=== PATIENT | male | born 1995 | race American Indian/Alaskan Native ===

== ENCOUNTER 2019-10-15 21:53 | Emergency (ER) | payer SELFPAY ==
--- NOTE | 2019-10-15 22:20 | EDM.PDOC ---
ED HPI GENERAL MEDICAL PROBLEM - General Chief Complaint: Respiratory Problem Stated Complaint: POSS CARBON MONOXIDE POISONING Time Seen by Provider: 10/15/19 22:06 Source of Information: Reports: Patient History Limitations: Reports: No Limitations - History of Present Illness INITIAL COMMENTS - FREE TEXT/NARRATIVE: Is a 24-year-old male who presents to the emergency department with complaints that he could possibly have carbon monoxide poisoning. He states that this evening he was working on the carburetor of his truck in a closed garage. States that he had to turn the truck on intermittently. About 2-1/2 hours ago he developed a headache as well as some nausea and slight shortness of breath. He states that he called and talked to his mother who is a nurse and she stated that he should come to the ER to be checked for carbon monoxide poisoning. He has a history of anxiety and states that after talk to his mom he became increasingly anxious and feels like he may be having a panic attack. He denies any dizziness and has had no syncopal events. He has no chronic health problems. He does admit to drinking 4 beers today. He also smokes marijuana regularly. The last time he smoked marijuana was on 6 PM this evening. He is also chronic cigarette smoker. Frontal Headache Pain Score (Numeric/FACES): 6 - Related Data Allergies Allergy/AdvReac Type Severity Reaction Status Date / Time No Known Allergies Allergy Verified 10/15/19 22:03 Home Meds: Home Meds . [No Known Home Meds] 10/15/19 [History] Past Medical History Musculoskeletal History: Reports: Osteoarthritis Social & Family History - Tobacco Use Smoking Status *Q: Current Every Day Smoker Years of Tobacco use: 10 Packs/Tins Daily: 1 - Recreational Drug Use Recreational Drug Use: Yes Drug Use in Last 12 Months: Yes Recreational Drug Type: Reports: Marijuana/Hashish Recreational Drug Use Frequency: Daily ED ROS GENERAL - Review of Systems Review Of Systems: Comprehensive ROS is negative, except as noted in HPI. ED EXAM, GENERAL - Physical Exam Exam: See Below Exam Limited By: No Limitations General Appearance: Alert, WD/WN, No Apparent Distress, Anxious Respiratory/Chest: No Respiratory Distress, Lungs Clear, Normal Breath Sounds, No Accessory Muscle Use, Chest Non-Tender Cardiovascular: Normal Peripheral Pulses, Regular Rate, Rhythm, No Edema, No Gallop, No JVD, No Murmur, No Rub Extremities: Normal Inspection, Normal Range of Motion, Non-Tender, Normal Capillary Refill, No Pedal Edema Neurological: Alert, Oriented, CN II-XII Intact, Normal Cognition, Normal Gait, Normal Reflexes, No Motor/Sensory Deficits Psychiatric: Normal Affect, Normal Mood Skin Exam: Warm, Dry, Intact, Normal Color, No Rash Course - Vital Signs Last Recorded V/S: Last Vital Signs Temp 97.5 F 10/15/19 22:03 Pulse 63 10/15/19 22:03 Resp 17 10/15/19 22:03 BP 138/95 H 10/15/19 22:03 Pulse Ox 100 10/15/19 22:03 - Orders/Labs/Meds Labs: Laboratory Tests 10/15/19 10/15/19 Range/Units 22:20 22:20 Puncture Site Rt radial ABG pH 7.58 H (7.35-7.45) ABG pCO2 19.0 L* (35.0-45.0) mmHg ABG pO2 117.0 H (80.0-100.0) mmHg ABG HCO3 18 L (22.0-26.0) meq/L ABG O2 Saturation 98.9 H (96.0-97.0) % ABG Base Excess -1.2 (-2-2.0) ABG Carboxyhemoglobin 4.7 H (0.00-1.50) %THgb Ever Test Positive A-a Gradient 9 mmHg O2 Delivery Device Room air Oxygen Flow Rate 0.0 FiO2 21.00 (21.00-100.00) % - Re-Assessments/Exams Free Text/Narrative Re-Assessment/Exam: 10/15/19 22:34 Patient's carboxyhemoglobin is shown to be 4.7% which is well within the normal range for a smoker. On ABG, CO2 levels were low at 19 and oxygen level was elevated at 117. pH slightly elevated at 7.58 indicating patient is likely experiencing an anxiety attack and is hyperventilating. Chest xray was normal. Vital signs are stable. The patient has been drinking and smoking marijuana today, therefere, I do not think a benzodiazepine would be appropriate. I will recommend that he go home and rest. Return to the ER for any worsening symptoms. Departure - Departure Time of Disposition: 22:40 Disposition: Home, Self-Care 01 Condition: Good Clinical Impression: Anxiety - Discharge Information *PRESCRIPTION DRUG MONITORING PROGRAM REVIEWED*: No *COPY OF PRESCRIPTION DRUG MONITORING REPORT IN PATIENT DANA: No Instructions: Living With Anxiety Referrals: PCP,Not In Area [Primary Care Provider] - Forms: ED Department Discharge Additional Instructions: You were seen in the emergency department with concern that you may have carbon oxide poisoning after working in your vehicle in a garage. Your carboxyhemoglobin level was checked which is a measure of carbon monoxide in your blood and found to be normal for smoker at 4.7%. Blood gases were completed and show that your CO2 is low and your oxygen was high which indicates that you are preventing, likely due to a panic attack. Your chest x-ray was done and found to be normal. Recommend that you go home and rest Abstain consumption of alcohol and marijuana this evening. Ensure that you are taking an adequate amount of fluid. If you should experience any worsening symptoms, please not hesitate to return to the emergency department. Sepsis Event Note (ED) - Evaluation Sepsis Screening Result: No Definite Risk
--- NOTE | 2019-10-16 05:39 | CR ---
Chest: 2 views of the chest were obtained. Comparison: No prior chest imaging. Heart size and mediastinum are normal. Lungs are clear with no acute parenchymal change. Bony structures are unremarkable. Impression: 1. Nothing acute is seen on 2 view chest x-ray. Diagnostic code #1 This report was dictated in MDT
== END 2019-10-15 22:55 | disposition home or self-care (01) ==
LOC: JD.ED 21:53
DX: F41.9 Anxiety disorder, unspecified (principal); F17.210 Nicotine dependence, cigarettes, uncomplicated
CPT/HCPCS: 36600; 71046; 71046-26; 82375; 82803; 99282; 99283-25

== ENCOUNTER 2021-01-15 08:29 | Emergency (ER) | payer OTHER ==
--- NOTE | 2021-01-15 09:06 | EDM.PDOC ---
ED HPI GENERAL MEDICAL PROBLEM - General Chief Complaint: Respiratory Problem Stated Complaint: POSS COVID CHEST PAINS COUGH CHILLS Time Seen by Provider: 01/15/21 09:06 Source of Information: Reports: Patient History Limitations: Reports: No Limitations - History of Present Illness INITIAL COMMENTS - FREE TEXT/NARRATIVE: 25-year-old male presents to the ED with acute onset of fever chills generalized myalgia and headache. He has coughed paroxysmal pain since around midnight. Minimal sputum production. Loss of appetite. Emesis x1. He was exposed to a sibling with Covid positivity within the last 5 days. Symptoms really started yesterday. He is unvaccinated against COVID-19. Onset: Sudden Onset Date: 01/13/21 Duration: Day(s): Location: Reports: Chest (Paroxysmal minimally productive cough), Other (Headache generalized myalgia fever and chills loss of appetite) Quality: Reports: Ache, Throbbing (Headache is constant throbbing made worse by coughing.) Severity: Moderate Improves with: Reports: Rest Worsens with: Reports: Other (Coughing), Movement Context: Reports: Sick Contact (Exposed to a sibling with COVID-19 illness a few days ago). Denies: Activity, Exercise, Lifting, Trauma, Other Associated Symptoms: Reports: Chest Pain, Cough, cough w sputum (Severe paroxysmal coughing up slightly greenish tinged sputum.), Fever/Chills, Headaches, Loss of Appetite, Malaise ( vomiting once posttussive.), Nausea/Vomiting (Nausea), Shortness of Breath, Weakness (Productive dyspnea). Denies: Diaphoresis (Upper anterior chest pain from coughing so much), Rash, Seizure Treatments PROPERTY SPECIALIST: Reports: Other (see below) (None.) - Related Data Allergies Allergy/AdvReac Type Severity Reaction Status Date / Time No Known Allergies Allergy Verified 10/15/19 22:03 Home Meds: Home Meds . [No Known Home Meds] 10/15/19 [History] Past Medical History Gastrointestinal History: Reports: PUD (History of peptic ulcer disease in the past) Musculoskeletal History: Reports: Osteoarthritis Social & Family History - Tobacco Use Tobacco Use Status *Q: Current Every Day Tobacco User Tobacco Use Within Last Twelve Months: Cigarettes (1 pack/day) Years of Tobacco use: 10 Packs/Tins Daily: 1 ED ROS GENERAL - Review of Systems Review Of Systems: See Below Constitutional: Reports: Fever, Chills, Malaise, Weakness, Fatigue HEENT: Reports: Rhinitis, Throat Pain (Minimal.) Respiratory: Reports: Shortness of Breath, Cough, Sputum (Severe paroxysmal cough occasional slightly green-tinged sputum). Denies: Wheezing, Pleuritic Chest Pain Cardiovascular: Reports: Chest Pain (Upper anterior chest pain from coughing so much) Endocrine: Reports: Fatigue GI/Abdominal: Reports: Decreased Appetite, Nausea, Vomiting (Vomited once posttussive.) : Reports: No Symptoms Musculoskeletal: Reports: Muscle Pain (Generalized myalgia particularly large muscles of the neck lower back and thighs) Skin: Reports: No Symptoms Neurological: Reports: Dizziness, Headache. Denies: Confusion, Numbness, Paresthesia Psychiatric: Reports: No Symptoms Hematologic/Lymphatic: Reports: No Symptoms Immunologic: Reports: No Symptoms ED EXAM, GENERAL - Physical Exam Exam: See Below Exam Limited By: No Limitations General Appearance: Alert, WD/WN, Mild Distress, Other (Appears ill. Very warm to palpation. Temperature is registered 36.9 but he feels much warmer than this. Heart rate is 86 and sinus respiratory is 20 with O2 sats 100% room air. BP 137/87) Eye Exam: Bilateral Eye: Normal Inspection (No scleral icterus or blepharal pallor), PERRL Ears: Normal TMs Throat/Mouth: Normal Inspection, Normal Lips, Normal Voice, Other Head: Atraumatic (Oropharynx is minimally erythematous without exudate), Normocephalic Neck: Normal Inspection, Supple, Non-Tender, Full Range of Motion. No: Lymphadenopathy (L), Lymphadenopathy (R) Respiratory/Chest: No Respiratory Distress, Lungs Clear, Normal Breath Sounds, No Accessory Muscle Use, Chest Non-Tender. No: Decreased Breath Sounds, Rales, Rhonchi, Wheezing Cardiovascular: Normal Peripheral Pulses, Regular Rate, Rhythm, No Edema, No Gallop, No JVD, No Rub Peripheral Pulses: 3+: Carotid (L), Carotid (R), Posterior Tibial (L), Posterior Tibial (R), Dorsalis Pedis (L), Dorsalis Pedis (R) GI/Abdominal: Normal Bowel Sounds, Soft, Non-Tender, No Organomegaly, No Distention, Other (Scaphoid abdomen. No scars) Back Exam: Normal Inspection, Full Range of Motion. No: CVA Tenderness (L), CVA Tenderness (R) Extremities: Normal Inspection, Normal Range of Motion, Non-Tender, No Pedal Edema Neurological: Alert, Oriented, CN II-XII Intact, Normal Cognition Psychiatric: Normal Affect, Normal Mood, Other (Appears ill.) Skin Exam: Warm, Dry, Intact, Normal Color Course - Vital Signs Last Recorded V/S: Last Vital Signs Temp 38.3 C H 01/15/21 09:46 Pulse 86 01/15/21 08:37 Resp 20 01/15/21 08:37 BP 137/87 01/15/21 08:37 Pulse Ox 100 01/15/21 08:37 - Orders/Labs/Meds Labs: Laboratory Tests 01/15/21 Range/Units 08:43 SARS-CoV-2 RNA ([facility]) Positive H (NEGATIVE) Meds: Medications Discontinued Medications Generic Name Dose Route Start Last Admin Trade Name Freq PRN Reason Stop Dose Admin Acetaminophen 975 mg 01/15/21 09:38 01/15/21 09:46 Acetaminophen 325 Mg Tab PO 01/15/21 09:39 975 mg ONETIME ONE Administration Ondansetron HCl 4 mg 01/15/21 09:54 01/15/21 10:01 Ondansetron 4 Mg Tab.Dis PO 01/15/21 09:55 4 mg ONETIME ONE Administration - Radiology Interpretation Free Text/Narrative:: 25-year-old male who is in good shape but still smokes about 10 to 15 cigarettes daily. He was exposed to a brother with COVID-19 illness 4 days ago. He started to develop low-grade headache on Saturday evening and developed fever chills overnight with headache and generalized myalgia. Coughing paroxysmal he to the point of emesis on one occasion. No diarrhea loss of appetite he believes his sense of taste and smell are retained. He has not been vaccinated against COVID-19 illness. Suspect COVID-19 illness. One view chest x-ray will be done no labs at this time since his O2 sats are 100% on room air. COVID-19 screen has been done by triage nurse given Tylenol nine seven 5 mg p.o. for fever relief. Given Zofran 4 mg sublingual for nausea relief - Re-Assessments/Exams Free Text/Narrative Re-Assessment/Exam: 01/15/21 09:47 chest x-ray done portably reveals heart size and mediastinum to be within normal limits. Lungs are clear with no acute parenchymal changes. Bony structures show nothing acute 01/15/21 11:11 COVID-19 test is positive. Discussed the findings with the patient. He will be quarantined for the next 12 days since his symptoms just started last evening. He will continue Tylenol 650 mg every 4 hours as needed for headache and body ache relief. He has had a peptic ulcer in the past and he could use sporadic use of Motrin 600 mg every 6 hours for fever and body ache and pain relief. We will send him home with a pulse oximeter and he will check his oxygen levels 4 times daily. He will return if his O2 levels drop below 90% for greater than 2 or 3 consecutive hours. He is otherwise young and healthy and hopefully he will tolerate the COVID-19 illness well. O2 sats are 99% room air. Departure - Departure Time of Disposition: 11:18 Disposition: Home, Self-Care 01 Condition: Fair Clinical Impression: COVID-19 determined by clinical diagnostic criteria - Discharge Information *PRESCRIPTION DRUG MONITORING PROGRAM REVIEWED*: Not Applicable *COPY OF PRESCRIPTION DRUG MONITORING REPORT IN PATIENT DANA: Not Applicable Instructions: COVID-19 Frequently Asked Questions, 10 Things You Can Do to Manage Your COVID-19 Symptoms at Home - CDC (09/09/2020), COVID-19: How to Protect Yourself and Others - CDC, COVID-19: Quarantine vs. Isolation - [facility] (02/11/2020) Referrals: PCP,None [Primary Care Provider] - Forms: ED Department Discharge, ED Return to Work/School Form Additional Instructions: Evaluation in the emergency room today in regards to acute onset of fever chills body aches headache and paroxysmal cough overnight. Known exposure to one of your siblings with Covid positivity in the last few days. Covid test done in the ED today is positive. Chest x-ray is negative at this time for any signs of pneumonia. Oxygen saturations are staying between 97 and 99%. You are in the very early stages of COVID-19 illness. Typically patients are worse between day s 8 and 11. You will need to continue to use Tylenol 650 mg every 4 hours or Motrin 600 mg every 6 hours to relieve pain headache, body aches and fever. Trying maintain hydration with Gatorade or Powerade ideally 6 ounces sipped per hour. Diet as tolerated as appetite is very poor during this illness. Avoid dairy products and no apple juice or grape juice as this helps cause diarrhea. If your O2 sats drop below 88% for 2 consecutive hours you would need to return to the ED for care. Sepsis Event Note (ED) - Focused Exam Vital Signs: Vital Signs Temp Temp Pulse Resp BP Pulse Ox 01/15/21 09:46 38.3 C H 01/15/21 08:37 36.9 C 86 20 137/87 100
[2021-01-15] MEDS ORDERED: Acetaminophen 325 MG Tab PO ONE (09:38)
--- NOTE | 2021-01-15 09:44 | CR ---
Chest: Frontal view of the chest was obtained. Comparison: Prior chest x-ray of 10/15/19. Heart size and mediastinum are within normal limits. Lungs are clear with no acute parenchymal change. Bony structures show nothing acute. Impression: 1. Nothing acute is seen on frontal chest x-ray. Diagnostic code #1
[2021-01-15] MEDS ORDERED: Ondansetron 4 MG Tab.DIS PO ONE (09:54)
== END 2021-01-15 11:51 | disposition home or self-care (01) ==
LOC: JD.ED 08:29
DX: U07.1 COVID-19 (principal); Z72.0 Tobacco use
CPT/HCPCS: 71045; 87635; 99283; A9270; U0002